=== PATIENT | female | born 1945 | race Caucasian/White ===

== ENCOUNTER 2016-12-17 21:08 | Emergency (ER) | payer MEDICARE ==
[2016-12-17 21:43] LABS: BASOPHIL 0.5 % (0-2); EOSINOPHIL 2.1 % (0-7); HCT 35.8 % (37.0-47.0); HGB 12.5 g/dl (12.5-16.0); LYMPHOCYTE 27.2 % (15-48); MCH 31.4 pg (25.0-31.0); MCHC 34.9 g/dL (32.0-36.0); MCV 89.9 fL (78.0-100.0); MONOCYTE 14.1 % (0-12); MPV 9.6 fL (6.0-9.5); NEUTROPHIL 56.1 % (41-80); PLT 204 K/uL (150-400); RBC 3.98 M/uL (4.20-5.40); RDW 12.5 % (11.5-14.0); WBC 6.2 K/uL (4.0-10.5)
[2016-12-17 21:54] LABS: INR 1.08 (0.9-1.2); PROTHROMBIN TIME 13.6 SECONDS (11.7-14.0)
[2016-12-17 22:04] LABS: PRO-BNP 95 pg/mL (0-125); TROPONIN T < 0.010 ng/mL
[2016-12-17 22:05] LABS: ACETAMINOPHEN (TYLENOL) < 5.0 ug/mL (10.0-30.0); ALCOHOL (ETOH) MEDICAL NONE DETECTED; PTT 17.8 SECONDS (23.2-31.4); SALICYLATE < 6 ug/mL (0-300)
[2016-12-17 22:06] LABS: ALBUMIN 3.8 g/dL (3.4-4.8); BILIRUBIN - TOTAL 0.7 mg/dL (0.1-1.0); GLOBULIN (CALCULATION) 3.6 g/dL (2.2-4.2); POTASSIUM 3.7 mmol/L (3.5-5.1); TOTAL PROTEIN 7.4 g/dL (6.4-8.3)
[2016-12-17 22:11] LABS: CKMB 2.44 ng/mL (0.97-4.94)
[2016-12-17 22:27] LABS: BILIRUBIN 1+ mg/dL (NEGATIVE); BLOOD NEGATIVE Ery/uL (NEGATIVE); CLARITY CLEAR (CLEAR); COLOR YELLOW (YELLOW); GLUCOSE (U) NORMAL (NORMAL); KETONE (U) NEGATIVE (NEGATIVE); LEUKOCYTES NEGATIVE Leu/uL (NEGATIVE); NITRITE NEGATIVE (NEGATIVE); PROTEIN NEGATIVE (NEGATIVE); SPECIFIC GRAVITY >=1.030 (1.001-1.030)
[2016-12-17 22:42] LABS: AMPHETAMINES POSITIVE (NEGATIVE); BENZODIAZEPINES NEGATIVE (NEGATIVE); COCAINE NEGATIVE (NEGATIVE); MARIJUANA (THC) POSITIVE (NEGATIVE)
[2016-12-17 22:43] LABS: BARBITURATES NEGATIVE (NEGATIVE); METHADONE POSITIVE (NEGATIVE); TRICYCLIC ANTIDEPRESSANT NEGATIVE (NEGATIVE)
== END 2016-12-18 04:07 | disposition other institution (70) ==
LOC: FER 21:08
PROVIDERS: Emergency Medicine Emergency Medical Services
DX: T43.222A Poisoning by selective serotonin reuptake inhibitors, intentional self-harm, initial encounter (principal); T38.3X2A Poisoning by insulin and oral hypoglycemic [antidiabetic] drugs, intentional self-harm, initial encounter; E86.9 Volume depletion, unspecified; R82.90 Unspecified abnormal findings in urine; F32.9 Major depressive disorder, single episode, unspecified; I10 Essential (primary) hypertension; E07.9 Disorder of thyroid, unspecified; Z79.899 Other long term (current) drug therapy
CPT/HCPCS: 36415; 70450; 71010; 80053; 80305; 81003; 82550; 82553; 83605; 83880; 84484; 85025; 85610; 85730; 87088; 93005; G0480